=== PATIENT | female | born 1970 | race Asian ===

== ENCOUNTER 2020-06-26 07:51 | Outpatient (CLI) | payer OTHER | END 2020-06-26 21:10 | disposition home or self-care (01) | LOC: LAB 07:51 | PROVIDERS: ATTEND Nurse Practitioner Family | DX: Z01.818 Encounter for other preprocedural examination (principal); Z11.59 Encounter for screening for other viral diseases | CPT/HCPCS: 87635; G2023; U0003 ==

== ENCOUNTER 2020-12-25 08:46 | Outpatient (CLI) | payer OTHER ==
[2020-12-25 09:26] LABS: PLATELET COUNT 258 K/uL (152-353)
[2020-12-25 09:57] LABS: POTASSIUM 3.8 mmol/L (3.6-5.2)
== END 2020-12-25 19:07 | disposition home or self-care (01) ==
LOC: RAD 08:46
PROVIDERS: ATTEND Family Medicine
DX: E07.9 Disorder of thyroid, unspecified (principal); R53.83 Other fatigue; E53.8 Deficiency of other specified B group vitamins; E55.9 Vitamin D deficiency, unspecified; E27.40 Unspecified adrenocortical insufficiency; B71.9 Cestode infection, unspecified; M54.9 Dorsalgia, unspecified; M54.2 Cervicalgia
CPT/HCPCS: 36415; 80053; 82306; 82607; 82728; 84439; 84443; 85027